=== PATIENT | male | born 1965 ===

== ENCOUNTER 2017-08-25 07:39 | Emergency (ER) | payer OTHER ==
[2017-08-25 07:44] VITALS: TEMP 97.9; BMI 25.0
[2017-08-25 08:03] VITALS: RESP 18
--- NOTE | 2017-08-25 08:36 | ED PDOC ---
Syncope/Near Syncope/Dizziness Time Seen by Provider: 08/25/17 08:05 Chief Complaint (Nursing): Dizziness/Lightheaded Chief Complaint (Provider): Dizziness/Lightheaded History Per: Patient History/Exam Limitations: no limitations Onset/Duration Of Symptoms: Sudden Onset (upon waking up) Current Symptoms Are (Timing): Better Additional Complaint(s): Gabino is a 52 y/o male who presents to the ED complaining of dizziness with a slight headache, since waking up this morning. He states the dizziness was gradually worsening since onset, but has subsided since lying down. He drank coffee this morning but has not had breakfast yet. Patient reports he is borderline hypertensive, and takes daily medication for his cholesterol. He describes having occasional dizziness in the past, but has never been diagnosed with vertigo. Denies any associated nausea, vomiting, weakness, numbness, or tingling. 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 He reports his annual follow up with his surgeon is this month. Patient states other past medical history includes a knee surgery, and herniated discs at L1, 2, and 4, treated with physical therapy. PMD: Dr. Jayjay Myers Past Medical History Reviewed: Historical Data, Nursing Documentation, Vital Signs Vital Signs: Last Vital Signs Temp 97.9 F 08/25/17 08:00 Pulse 81 08/25/17 08:00 Resp 18 08/25/17 08:00 BP 166/101 H 08/25/17 08:00 Pulse Ox 95 08/25/17 08:00 - Medical History PMH: Arthritis (KNEES), Asthma, HTN, Hypercholesterolemia Denies: Colonic Polyps - Surgical History Surgical History: Back Surgery, Tonsillectomy Other surgeries: Knee surgery. AVM surgery - 2014 - Family History Family History: States: Unknown Family Hx - Home Medications Home Medications: Ambulatory Orders Medication Instructions Recorded Lisinopril 10 mg PO DAILY 05/14/16 Simvastatin 40 mg PO DAILY 05/14/16 Albuterol HFA [Ventolin HFA 90 1 puff IH [id number] #60 puff 01/01/17 mcg/actuation (8 g)] Azithromycin [Zithromax] 250 mg PO DAILY #4 tab 01/01/17 - Allergies Allergies/Adverse Reactions: Allergies Allergy/AdvReac Type Severity Reaction Status Date / Time No Known Allergies Allergy Verified 09/09/16 09:33 Review of Systems ROS Statement: Except As Marked, All Systems Reviewed And Found Negative Gastrointestinal: Negative for: Nausea, Vomiting Neurological: Positive for: Headache, Dizziness. Negative for: Weakness, Numbness Physical Exam - Reviewed Nursing Documentation Reviewed: Yes Vital Signs Reviewed: Yes - Physical Exam Appears: Positive for: Well, Non-toxic, No Acute Distress Head Exam: Positive for: ATRAUMATIC, NORMAL INSPECTION, NORMOCEPHALIC Skin: Positive for: Normal Color, Warm, Dry Eye Exam: Positive for: EOMI, Normal appearance, PERRL ENT: Positive for: Normal ENT Inspection Neck: Positive for: Normal, Supple Cardiovascular/Chest: Positive for: Regular Rate, Rhythm. Negative for: Murmur Respiratory: Positive for: Normal Breath Sounds. Negative for: Accessory Muscle Use, Respiratory Distress Pulses-Radial (L): 2+ Pulses-Radial (R): 2+ Gastrointestinal/Abdominal: Positive for: Normal Exam, Soft. Negative for: Tenderness Back: Positive for: Normal Inspection. Negative for: L CVA Tenderness, R CVA Tenderness, Vertebral Tenderness Extremity: Positive for: Normal ROM. 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 Negative for: Motor/Sensory Deficits , Aphasia, Facial Droop - Laboratory Results Result Diagrams: 08/25/17 08:42 08/25/17 08:42 - ECG ECG: Positive for: Interpreted By Me, Viewed By Ks ECG Rhythm: Positive for: Sinus Rhythm. Negative for: ST/T Changes Rate: 75 O2 Sat by Pulse Oximetry: 95 (RA) Pulse Ox Interpretation: Normal Medical Decision Making Medical Decision Making: Time: 8:25 Initial Plan: --CMP --CBC w/ differential --Pending CT Head w/o contrast Time: 9:53 CT HEAD W/O CONTRAST: FINDINGS: HEMORRHAGE: No intracranial hemorrhage. BRAIN: There is redemonstration of a known large approximately 3.4 x 1.7 cm AVM in the left parasagittal frontal lobe extending across the midline into the genu of the corpus callosum. There is no mass, mass effect or abnormal extra-axial fluid collection. VENTRICLES: The ventricles are normal in size, shape and configuration. CALVARIUM: The skull base and calvarium are normal. PARANASAL SINUSES: Predominantly clear. MASTOID AIR CELLS: Predominantly clear. OTHER FINDINGS: None. IMPRESSION: No acute intracranial abnormality. Large left frontal parasagittal AV malformation extending across the midline into the genu of the corpus callosum. --Orthostatics were normal --Labs reviewed and are normal Time: 10:55 --Patient reports improvement in symptoms and is medically stable for discharge. --Advised patient to follow up with neurosurgeon in 1-2 days. pt will make appt to see specialist during that period. stressed the importance of doing so. --There is agreement to discharge plan. Return immediately if symptoms persist or worsen. Clinical Impression: Dizziness Scribe Attestation: Documented by Rosario Sommers, acting as a scribe for Yunior Villarreal MD Provider Scribe Attestation: All medical record entries made by the Scribe were at my direction and personally dictated by me. I have reviewed the chart and agree that the record accurately reflects my personal performance of the history, physical exam, medical decision making, and the department course for this patient. I have also personally directed, reviewed, and agree with the discharge instructions and disposition. Disposition - Clinical Impression Clinical Impression: Dizziness - Patient ED Disposition Is Patient to be Admitted: No Counseled Patient/Family Regarding: Studies Performed, Diagnosis, Need For Followup - Disposition Disposition: Routine/Home Disposition Time: 10:55 Condition: IMPROVED Additional Instructions: follow up with your neurosurgeon tomorrow for further evaluation. return to the ED With any worsening or concerning symptoms Instructions: Dizziness (ED) Forms: [employer] ([place])
[2017-08-25 08:55] LABS: ALB/GLOB RATIO 1.4 (1.0-2.1); ALKALINE PHOSPHATASE 68 U/L (38-126); ALT/SGPT 58 U/L (21-72); AST/SGOT 45 U/L (17-59); BILIRUBIN,TOTAL 0.9 mg/dl (0.2-1.3); BLOOD UREA NITROGEN 12 mg/dl (9-20); CALCIUM 9.8 mg/dL (8.4-10.2); CARBON DIOXIDE 26 mmol/L (22-30); CHLORIDE 105 mmol/L (98-107); GFR AFRICAN-AMERICAN > 60; GLUCOSE,RANDOM 106 mg/dL (75-110); POTASSIUM 4.3 MMOL/L (3.6-5.0); SODIUM 144 mmol/l (132-148); TOTAL PROTEIN 7.6 G/DL (6.3-8.2)
[2017-08-25 09:07] LABS: BASO # 0.1 K/uL (0.0-0.2); BASO % 1.5 % (0.0-2.0); EOS # 0.1 K/uL (0.0-0.7); EOS % 0.8 % (0.0-4.0); HEMATOCRIT 47.1 % (35.0-51.0); LYMPH # 1.8 K/uL (1.0-4.3); LYMPH % 23.6 % (20.0-40.0); MEAN CELL VOLUME 92.6 fl (80.0-94.0); MEAN CORPUSCULAR HEMOGLOBIN 31.2 pg (27.0-31.0); MEAN CORPUSCULAR HGB CONC 33.7 g/dL (33.0-37.0); MEAN PLATELET VOLUME 8.2 fl (7.2-11.7); MONO # 0.8 K/uL (0.0-0.8); MONO % 10.8 % (0.0-10.0); NEUT % 63.3 % (50.0-75.0); RED CELL DISTRIBUTION WIDTH 13.3 % (11.5-14.5); WHITE BLOOD COUNT 7.8 K/uL (4.8-10.8)
--- NOTE | 2017-08-25 09:55 | CT ---
PROCEDURE: CT HEAD WITHOUT CONTRAST. HISTORY: Dizziness COMPARISON: 11/07/2015. TECHNIQUE: Axial computed tomography images were obtained through the head/brain without intravenous contrast. Radiation dose: Total exam DLP = 862.14 mGy-cm. This CT exam was performed using one or more of the following dose reduction techniques: Automated exposure control, adjustment of the mA and/or kV according to patient size, and/or use of iterative reconstruction technique. FINDINGS: HEMORRHAGE: No intracranial hemorrhage. BRAIN: There is redemonstration of a known large approximately 3.4 x 1.7 cm AVM in the left parasagittal frontal lobe extending across the midline into the genu of the corpus callosum. There is no mass, mass effect or abnormal extra-axial fluid collection. VENTRICLES: The ventricles are normal in size, shape and configuration. CALVARIUM: The skull base and calvarium are normal. PARANASAL SINUSES: Predominantly clear. MASTOID AIR CELLS: Predominantly clear. OTHER FINDINGS: None. IMPRESSION: No acute intracranial abnormality. Large left frontal parasagittal AV malformation extending across the midline into the genu of the corpus callosum.
[2017-08-25 11:44] VITALS: BP 156/100
[2017-08-25 15:06] VITALS: PULSE 75; O2SAT 95
== END 2017-08-25 11:45 | disposition home or self-care (01) ==
LOC: H.ER 07:39
DX: R42 Dizziness and giddiness (principal); I10 Essential (primary) hypertension; F17.210 Nicotine dependence, cigarettes, uncomplicated

== ENCOUNTER 2017-10-24 09:05 | Day surgery (SDC) | payer BC ==
[2017-10-24] MEDS ORDERED: Lactated Ringer's 1,000 ML IV ONE (10:10)
[2017-10-24] MEDS: Lidocaine 1% Inj (20ml) ONE ×4 (10:37→11:18)
[2017-10-24] MEDS: Iohexol 300 10 ML ONE ×5 (10:37→11:19)
[2017-10-24] MEDS: Bupivacaine HCl 0.25% PF (10 ml) Inj ONE ×5 (10:37→11:22)
[2017-10-24] MEDS: methylPREDNISolone Depo 80 mg/ml Inj ONE ×4 (10:38→11:22)
[2017-10-24] MEDS ORDERED: Midazolam 2 MG/2 ML VIAL ONE (11:03)
--- NOTE | 2017-10-24 12:14 | RAD ---
PROCEDURE: Fluoroscopy up to 1 hr. HISTORY: PAIN MANAGEMENT COMPARISON: None TECHNIQUE: Standard protocol for this study/examination. FINDINGS: Total fluoroscopic time (continuous mode) utilized during the procedure: 46.7 seconds. Total exam DLP: (mGy): 8.29 IMPRESSION: Less than 1 hr fluoroscopic time utilized during performance of the procedure.
[2017-10-24 12:32] VITALS: RESP 18
[2017-10-24 12:49] VITALS: BP 125/83; PULSE 61; TEMP 97.6; O2SAT 98
--- NOTE | 2017-10-24 14:43 | OP ---
PROCEDURE DATE: 10/24/2017 PREOPERATIVE DIAGNOSES: Lumbar radiculopathy and cervical trigger point. POSTOPERATIVE DIAGNOSIS: Lumbar radiculopathy and cervical trigger point. PROCEDURES: Left L4-L5, L5-S1 transforaminal epidural steroid injection and left trapezius muscle injections x2. ANESTHESIA ADMINISTERED BY: Dr. Grayson. SURGEON: Booker Rubio MD TYPE OF ANESTHESIA: Monitored anesthesia care. COMPLICATIONS: None. SPECIMEN: None. DESCRIPTION OF PROCEDURE: After we had discussion of the procedure with the patient including its risks, benefits, alternative, outcome data, possibility of no effect or increased pain, the patient consented to the procedure. He denies any recent infections, bleeding tendencies or being on anticoagulants; the decision was then made to proceed to the OR. The patient was placed on a fluoroscopy table in a prone position with 2 pillows underneath his abdomen. The back was prepped and draped in the usual sterile fashion and sterile technique was adhered to during the entire procedure. The L4 and L5 vertebral levels were first identified in the anterior and posterior view. Angulation towards the left at approximately 25 degrees was used to maximize the visualization of the left L4 and L5 pedicles. The skin overlying the 6 o'clock position of both pedicles was infiltrated with 1% lidocaine using a 25-gauge needle. Subsequently, a 22-gauge 3.5 inch spinal needle was incrementally advanced under fluoroscopic guidance until the tip of the needle walked into the intervertebral foramen at both levels. After satisfactory positioning of both needles, approximately 0.5 mL of Isovue contrast was injected showing appropriate spread. At this point, approximately 3 mL of 0.25% Marcaine and Depo Medrol mixture was injected. The needle was then removed and the patient's back was cleaned and dried; bandage was applied. Then, the left trapezius muscles were marked and cleaned. The tender points were then injected using a 25-gauge needle with approximately 10 mL of 0.25% Marcaine at 2 different spots. The patient tolerated the procedure well and was then transferred to the recovery area. The patient displayed no signs of CSF dysfunction nor any neurological deficits during the stay in recovery. He will be discharged with the instructions to follow up in office in approximately 2-4 weeks. En-Rogelio Rubio MD
== END 2017-10-24 13:15 | disposition home or self-care (01) ==
LOC: H.OPSURG 09:05
PROVIDERS: ATTEND Anesthesiology
DX: M54.16 Radiculopathy, lumbar region (principal)
CPT/HCPCS: 64483; 64484; J1040; J2250; J3010; J7120; Q9967

== ENCOUNTER 2018-09-04 06:24 | Emergency (ER) | payer OTHER ==
[2018-09-04 06:24] VITALS: BMI 25.0
[2018-09-04] MEDS: Labetalol 5 mg/ml Inj 20ML IVP STA ×2 (07:15→07:35)
[2018-09-04] MEDS ORDERED: Sodium Chloride 0.9% 1,000 ML IV SCH (07:15)
--- NOTE | 2018-09-04 07:15 | ED PDOC ---
HPI:STROKE - Time Time: 07:13 - Historian Historian: Patient - Chief Complaint Chief Complaint: other (Headache while riding to work on bike this AM approx 6:30 AM. No focal weakness or parasthesias.) - Onset Date: 09/04/18 Time: 06:30 - Timing Timing: Currently Symptomatic - Context Context: Bicycle - Severity of pain Maximum severity:: Moderate Pain Scale:: 4 Severity Current: Moderate Pain Scale:: 4 - Quality of Pain Quality of Pain:: Aching - Associated Symptoms Associated symptoms:: Headache - Exacerbated by Exacerbated by:: Nothing - Relieved by Relieved by:: Nothing - TPA Positive for Contraindication: Yes Reason tPA is not being Administered: H/o cerebral aneurysm NIHSS Stroke Scale - How Severe is the Stroke Level of Consciousness: 1=Drowsy LOC to Questions: 0=Both comments correct LOC to commands: 0=Obeys both correctly Best Gaze: 0=Normal Visual: 0=No visual loss Facial: 0=Normal Motor Arm - Left: 0=No drift Motor Arm - Right: 0=No drift Motor Leg - Left: 0=No drift Motor Leg - Right: 0=No drift Limb Ataxia: 0=Absent Sensory: 0=Normal Best Language: 0=No aphasia Dysarthia: 0=Normal articulation Extinction & Inattention (Neglect): 0=Normal, no object Score: 1 rTPA Inclusion/Exclusion - Refusal of Treatment Patient Refused Treatment: No - Inclusion Criteria for Altepase Patient is 18 years or Older: Yes The Clinical Diagnosis of Ischemic Stroke That is Causing a Potentially Di sabling Neurological Deficit: No Time of Onset is Well Established to be Less Than 270 Minute Before Treatment Would Begin: Yes Risk/Benefit Discussed With Patient/Family Member Present: No Past Medical History Vital Signs: Last Vital Signs Temp 98.2 F 09/04/18 06:34 Pulse 85 09/04/18 06:54 Resp 28 H 09/04/18 06:54 BP 169/110 H 09/04/18 06:54 Pulse Ox 96 09/04/18 06:54 - Medical History PMH: Arthritis (KNEES), Asthma, HTN, Hypercholesterolemia Denies: Colonic Polyps Other PMH: Cerebral aneurysm - Surgical History Surgical History: Back Surgery, Tonsillectomy - Family History Family History: States: Unknown Family Hx - Home Medications Home Medications: Ambulatory Orders Medication Instructions Recorded Lisinopril 10 mg PO DAILY 05/14/16 Simvastatin 40 mg PO DAILY 05/14/16 Albuterol HFA [Ventolin HFA 90 1 puff IH [id number] #60 puff 01/01/17 mcg/actuation (8 g)] - Allergies Allergies/Adverse Reactions: Allergies Allergy/AdvReac Type Severity Reaction Status Date / Time No Known Allergies Allergy Verified 09/04/18 06:34 Review of Systems ROS Statement: Except As Marked, All Systems Reviewed And Found Negative Neurological: Positive for: Headache Physical Exam - Reviewed Nursing Documentation Reviewed: Yes Vital Signs Reviewed: Yes - Physical Exam Appears: Positive for: Non-toxic, No Acute Distress Head Exam: Positive for: ATRAUMATIC, NORMAL INSPECTION, NORMOCEPHALIC Skin: Positive for: Normal Color, Warm, DRY Eye Exam: Positive for: EOMI, Normal appearance, PERRL ENT: Positive for: Normal ENT Inspection Neck: Positive for: Normal, Painless ROM Cardiovascular/Chest: Positive for: Regular Rate, Rhythm Respiratory: Positive for: CNT, Normal Breath Sounds Gastrointestinal/Abdominal: Positive for: Normal Exam, Soft Back: Positive for: Normal Inspection Extremity: Positive for: Normal ROM Neurologic/Psych: Positive for: Oriented. Negative for: Alert (Drowsy arousable), Motor/Sensory Deficits - Laboratory Results Result Diagrams: 09/04/18 07:25 09/04/18 07:25 - ECG O2 Sat by Pulse Oximetry: 96 (RA) Pulse Ox Interpretation: Normal - Progress Re-evaluation Time: 08:29 Condition: Re-examined (BP 156/111, will titrate Nicardipene drip. Keppra 1 gm IV given) - Critical Care Total Time (In Min): 60 Documented Critical Care: Time excludes all time spent performint seperately billable procedures Medical Decision Making Medical Decision Makin Discussed patient's CT findings with Dr. Holcomb, hospital neurologist who requested calling Dr. Baeza for interventional neurology. [phone] findings [address]. Baeza who requests transfer of patient for neuro intervention. [id number] Baeza for transfer to [facility]. Scribe Attestation: Documented by Lacie James, acting as a scribe for Vasu Tabares MD. Provider Scribe Attestation: All medical record entries made by the Scribe were at my direction and personally dictated by me. I have reviewed the chart and agree that the record accurately reflects my personal performance of the history, physical exam, medical decision making, and the department course for this patient. I have also personally directed, reviewed, and agree with the discharge instructions and dis position. Disposition - Clinical Impression Clinical Impression: Subarachnoid bleed - Patient ED Disposition Is Patient to be Admitted: No - Disposition Disposition: Other Institution Disposition Time: 08:30 Condition: GUARDED Forms: [employer] (Korean)
[2018-09-04] MEDS ORDERED: Nicardipine 20 MG/200 ML 20 MG/200 ML BAG IV ONE (07:51)
[2018-09-04 07:55] LABS: BASO % 0.3 % (0.0-2.0); EOS # 0.2 K/uL (0.0-0.7); EOS % 1.7 % (0.0-4.0); HEMOGLOBIN 16.8 g/dL (12.0-18.0); LYMPH # 2.7 K/uL (1.0-4.3); LYMPH % 29.4 % (20.0-40.0); MEAN CELL VOLUME 92.1 fl (80.0-94.0); MEAN CORPUSCULAR HEMOGLOBIN 31.6 pg (27.0-31.0); MEAN CORPUSCULAR HGB CONC 34.3 g/dL (33.0-37.0); MEAN PLATELET VOLUME 8.6 fl (7.2-11.7); MONO # 0.9 K/uL (0.0-0.8); MONO % 10.3 % (0.0-10.0); NEUT # 5.3 K/uL (1.8-7.0); NEUT % 58.3 % (50.0-75.0); RBC 5.32 Mil/uL (4.40-5.90); RED CELL DISTRIBUTION WIDTH 13.8 % (11.5-14.5)
[2018-09-04] MEDS ORDERED: levETIRAcetam 1,000 MG in Sodium Chloride 0.9% 100 ML IVPB ONE (07:57)
[2018-09-04 08:13] LABS: ALB/GLOB RATIO 1.2 (1.0-2.1); ALBUMIN 4.5 g/dL (3.5-5.0); ALT/SGPT 37 U/L (21-72); AST/SGOT 31 U/L (17-59); BLOOD UREA NITROGEN 15 mg/dl (9-20); CALCIUM 9.9 mg/dL (8.4-10.2); GFR NON-AFRICAN AMERICAN > 60; HDL CHOLESTEROL 53 MG/DL (30-70)
[2018-09-04 08:14] LABS: PROTHROMBIN TIME 10.8 Seconds (9.8-13.1)
[2018-09-04 08:17] LABS: PARTIAL THROMBOPLASTIN TIME 26.7 Seconds (25.6-37.1)
[2018-09-04 08:23] LABS: LDL CHOLESTEROL 166 mg/dL (0-129)
--- NOTE | 2018-09-04 08:34 | RAD ---
Date of service: 09/04/2018 HISTORY: Code Stroke COMPARISON: Portable chest 01/01/2017. FINDINGS: LUNGS: Inspiratory volume appears somewhat diminished however there is no definitive infiltrate identified bilaterally. There is some crowding of the bronchovascular markings bilaterally at the bases. PLEURA: No significant pleural effusion identified, no pneumothorax apparent. CARDIOVASCULAR: Normal. OSSEOUS STRUCTURES: No significant abnormalities. VISUALIZED UPPER ABDOMEN: Mild right hemidiaphragm elevation noted. OTHER FINDINGS: None. IMPRESSION: No acute airspace disease or pulmonary vascular congestion. Cardiac size stable. Crowding of the bronchovascular markings is identified in the bilateral bases somewhat. Right hemidiaphragm appears slightly elevated of indeterminate etiology.
--- NOTE | 2018-09-04 08:52 | CT ---
Date of service: 09/04/2018 PROCEDURE: CT HEAD WITHOUT CONTRAST. HISTORY: Headache COMPARISON: Noncontrast head CT 08/25/2017. TECHNIQUE: Axial computed tomography images were obtained through the head/brain without intravenous contrast. Radiation dose: Total exam DLP = 894.06 mGy-cm. This CT exam was performed using one or more of the following dose reduction techniques: Automated exposure control, adjustment of the mA and/or kV according to patient size, and/or use of iterative reconstruction technique. FINDINGS: HEMORRHAGE: There is now anterior left intraparenchymal hemorrhage as well as local subarachnoid hemorrhage at the medial bilateral frontal lobes anteriorly extending up to the vertex and also to the anterior cranial fossa through the interhemispheric fissure primarily. Additional hemorrhage fills the suprasellar cistern and extends into all 4 ventricles, foramina of Luschka and measured on the as well as the incisura. There is a minimal rightward shift of 2 mm in addition to some crowding of the cisterns surrounding the brainstem which is likely a function of generalized mass effect resulting slight is a uncal herniation. There is no tonsillar herniation at this time however CSF immediately cephalad and at the foramen magnum appears to be diminishing, partially related to subarachnoid hemorrhage. There is also hemorrhage through the body of the corpus callosum anteriorly, extending into left lateral ventricle with the 3rd ventricle completely filled with hemorrhage. Local edema sounds surrounds left frontal intraparenchymal hemorrhage. BRAIN: Good corticomedullary differentiation remains throughout the brain including the posterior fossa contents. Please see discussion above. VENTRICLES: As above. CALVARIUM: Unremarkable. PARANASAL SINUSES: Unremarkable as visualized. No significant inflammatory changes. MASTOID AIR CELLS: Unremarkable as visualized. No inflammatory changes. OTHER FINDINGS: None. IMPRESSION: Acute/subacute intraparenchymal and subarachnoid hemorrhage identified related to left frontal/pericallosal arteriovascular malformation. Hemorrhage extends into the ventricular system diffusely but mainly the left lateral ventricle and 3rd ventricle with hydrocephalus developing. Minimal rightward shift of 2 mm. Generalized mass effect is causing subtle encroachment of the basilar cisterns at this time. Limited local edema seen the genu of the corpus callosum and left frontal lobe related to intraparenchymal hemorrhage. [facility]04[facility]2018 7:42 a.m.. Findings discussed with Dr. Tabares by telephone with written down and read back verification 09/04/2018 8:20 a.m.. At the time of discussion of the case with [facility] Shukla head confirmed ER is receipt of preliminary report by Dr. Mora from [facility] and the Neurosurgery home care consultant had already been informed and reviewed this CT exam.
[2018-09-04 09:01] VITALS: TEMP 98.1
[2018-09-04] MEDS ORDERED: Nicardipine 20 MG/200 ML 20 MG/200 ML BAG ONE (09:39)
[2018-09-04 09:53] VITALS: PULSE 93; RESP 27; O2SAT 97
[2018-09-04 09:55] VITALS: BP 142/88
--- NOTE | 2018-09-04 10:18 | CARD ---
APPROVED REPORT Date of service: 09/04/2018 EKG Measurement Heart [id number] <Conclusion> Normal sinus rhythm Minimal voltage criteria for LVH, may be normal variant Borderline ECG
== END 2018-09-04 09:45 | disposition short-term general hospital (02) ==
LOC: H.ER 06:24
DX: I60.9 Nontraumatic subarachnoid hemorrhage, unspecified (principal)
CPT/HCPCS: 70450; 71045; 80053; 80061; 82948; 83036; 84484; 85025; 85610; 85730; 86850; 86900; 93005; 96374; 96375; 99285; J1953; J2405; J7030

== ENCOUNTER 2018-09-20 18:53 | Observation (INO) | payer BC, OTHER ==
[2018-09-20 18:53] VITALS: BMI 25.0
[2018-09-20] MEDS ORDERED: Sodium Chloride 0.9% 1,000 ML IV STA (19:15)
--- NOTE | 2018-09-20 19:34 | ED PDOC ---
Syncope/Near Syncope/Dizziness Time Seen by Provider: 09/20/18 19:02 Chief Complaint (Nursing): Syncope Chief Complaint (Provider): Syncope History Per: Patient History/Exam Limitations: no limitations Onset/Duration Of Symptoms: Hrs (x1) Associated Symptoms Preceding Syncopal Episode: Lightheadedness Fall Associated With With Symptoms: Yes Additional Complaint(s): Gabino Lenz is a 53 year old male, with a past medical history of HTN, hype rlipidemia, and AVM, who was brought to the emergency department by EMS for a syncopal episode at 18:50 today. Patient reports he felt dizzy and lightheaded before the syncopal episode. He fell forward and his report she found him on the floor with positive LOC but unsure how long. On September 04 patient was found to have a subdural hematoma, he was sent to [facility] where he was stabilized and was discharged yesterday. Patient reports he wasn't on medications for a long period of time but restarted taking his hypertensive medications. He is currently complaining of a mild neck pain and headache but denies any fever, chills, numbness or tingling, weakness, chest pain, shortness of breath, nausea, vomit, diarrhea or abdominal pain. No further medical complaints. PMD: Dr. Jayjay Brito NIHSS Stroke Scale - Date/Time Evaluation Performed Date Performed: 09/20/18 When Was NIHSS Performed: 24 hours post onset S/S - How Severe is the Stroke Level of Consciousness: 0=Alert LOC to Questions: 0=Both comments correct LOC to commands: 0=Obeys both correctly Best Gaze: 0=Normal Visual: 0=No visual loss Facial: 0=Normal Motor Arm - Left: 0=No drift Motor Arm - Right: 0=No drift Motor Leg - Left: 0=No drift Motor Leg - Right: 0=No drift Limb Ataxia: 0=Absent Sensory: 0=Normal Best Language: 0=No aphasia Dysarthia: 0=Normal articulation Extinction & Inattention (Neglect): 0=Normal, no object Score: 0 Past Medical History Reviewed: Historical Data, Nursing Documentation, Vital Signs Vital Signs: Last Vital Signs Temp 97.4 F L 09/20/18 18:58 Pulse 81 09/20/18 19:10 Resp 17 09/20/18 19:10 BP 96/63 L 09/20/18 19:10 Pulse Ox 100 09/20/18 19:10 - Medical History PMH: Arthritis (KNEES), Asthma, HTN, Hypercholesterolemia Denies: Colonic Polyps Other PMH: AVM - Surgical History Surgical History: Back Surgery, Tonsillectomy - Family History Family History: States: Unknown Family Hx - Home Medications Home Medications: Ambulatory Orders Medication Instructions Recorded Lisinopril 10 mg PO DAILY 05/14/16 Simvastatin 40 mg PO DAILY 05/14/16 Albuterol HFA [Ventolin HFA 90 1 puff IH [id number] #60 puff 01/01/17 mcg/actuation (8 g)] - Allergies Allergies/Adverse Reactions: Allergies Allergy/AdvReac Type Severity Reaction Status Date / Time No Known Allergies Allergy Verified 09/20/18 18:58 Review of Systems ROS Statement: Except As Marked, All Systems Reviewed And Found Negative Constitutional: Negative for: Fever, Chills Cardiovascular: Negative for: Chest Pain Respiratory: Negative for: Shortness of Breath Gastrointestinal: Negative for: Nausea, Vomiting, Abdominal Pain, Diarrhea Musculoskeletal: Positive for: Neck Pain (mild) Neurological: Positive for: Headache (mild), Dizziness (lightheaded), Other (syncope). Negative for: Weakness, Numbness (tingling) Physical Exam - Reviewed Nursing Documentation Reviewed: Yes Vital Signs Reviewed: Yes - Physical Exam Appears: Positive for: No Acute Distress Head Exam: Positive for: ATRAUMATIC, NORMAL INSPECTION, NORMOCEPHALIC Skin: Positive for: Normal Color, Warm, Dry Eye Exam: Positive for: Normal appearance, EOMI, PERRL ENT: Positive for: Other (Front left tooth mildly loose. No bleeding or septal hematoma) Neck: Positive for: Normal, Painless ROM, Supple Cardiovascular/Chest: Positive for: Regular Rate, Rhythm. Negative for: Murmur Respiratory: Positive for: Normal Breath Sounds. Negative for: Respiratory Distress Gastrointestinal/Abdominal: Positive for: Normal Exam, Soft. Negative for: Tenderness Back: Positive for: Normal Inspection. Negative for: L CVA Tenderness, R CVA Tenderness, Vertebral Tenderness Extremity: Positive for: Normal ROM (upper and lower extremities). 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 Negative for: Motor/Sensory Deficits, Aphasia, Facial Droop - Laboratory Results Result Diagrams: 09/20/18 19:55 09/20/18 19:55 Interpretation Of Abn Labs: no acute - ECG ECG: Positive for: Interpreted By Me, Viewed By Me ECG Rhythm: Positive for: Normal QRS, Normal ST Segment, Sinus Rhythm O2 Sat by Pulse Oximetry: 100 (RA) Pulse Ox Interpretation: Normal - CT Scan/US ct Other Rad Studies (CT/US): Read By Radiologist Other Rad Interpretation: no acute bleed - Progress ED Course And Treament: 2353: Spoke with Dr. Ro. Will admit for observation, considering pt. history and presentation. Stable. AAOx3. Pain free. Medical Decision Making Medical Decision Making: Time: 19:02 Initial Impression: Syncope Initial Plan: --Cervical Spine w/o contrast [CT] --Head w/o contrast [CT] --EKG --CMP --Troponin I --CBC w/ differential --PTT --PT --Sodium Chloride 1,000 ml IV 1,000 mls/hr --Reevaluation Scribe Attestation: Documented by Avtar Carrion, acting as a scribe for Huan Maguire MD. Provider Scribe Attestation: All medical record entries made by the Scribe were at my direction and personally dictated by me. I have reviewed the chart and agree that the record accurately reflects my personal performance of the history, physical exam, medical decision making, and the department course for this patient. I have also personally directed, reviewed, and agree with the discharge instructions and disposition. Disposition - Clinical Impression Clinical Impression: Syncope, Dizziness - Patient ED Disposition Is Patient to be Admitted: Yes Counseled Patient/Family Regarding: Studies Performed, Diagnosis - Disposition Disposition Time: 23:55 Condition: FAIR - Pt Status Changed To: Hospital Disposition Of: Observation - POA Present On Arrival: Falls Or Trauma
[2018-09-20 20:12] LABS: BASO # 0.1 K/uL (0.0-0.2); BASO % 0.7 % (0.0-2.0); EOS # 0.2 K/uL (0.0-0.7); EOS % 1.7 % (0.0-4.0); HEMOGLOBIN 14.7 g/dL (12.0-18.0); LYMPH # 1.4 K/uL (1.0-4.3); LYMPH % 13.7 % (20.0-40.0); MEAN CELL VOLUME 93.3 fl (80.0-94.0); MEAN CORPUSCULAR HEMOGLOBIN 32.5 pg (27.0-31.0); MEAN CORPUSCULAR HGB CONC 34.9 g/dL (33.0-37.0); MEAN PLATELET VOLUME 7.4 fl (7.2-11.7); MONO % 9.9 % (0.0-10.0); NEUT # 7.7 K/uL (1.8-7.0); RBC 4.52 Mil/uL (4.40-5.90); RED CELL DISTRIBUTION WIDTH 13.3 % (11.5-14.5); WHITE BLOOD COUNT 10.4 K/uL (4.8-10.8)
[2018-09-20 20:17] LABS: INR 1.1; PROTHROMBIN TIME 12.3 Seconds (9.8-13.1)
[2018-09-20 20:20] LABS: PARTIAL THROMBOPLASTIN TIME 31.3 Seconds (25.6-37.1)
[2018-09-20 20:31] LABS: ALB/GLOB RATIO 1.1 (1.0-2.1); ALBUMIN 3.9 g/dL (3.5-5.0); ALT/SGPT 233 U/L (21-72); AST/SGOT 90 U/L (17-59); BLOOD UREA NITROGEN 15 mg/dl (9-20); CALCIUM 9.6 mg/dL (8.4-10.2); GFR NON-AFRICAN AMERICAN > 60
--- NOTE | 2018-09-21 00:47 | CP.PCM.HP ---
Addendum entered and electronically signed by Froylan Dior MD 09/21/18 12:35: Patient seen. All chart and clinical data reviewed .Case discussed with resident. Agree with assessment and plan. Follow up MRI report Addendum entered and electronically signed by Max Baxter DPM 09/21/18 10:21: S: 53 y/o male with PMHx of HTN, AVM and recent subdural hematoma with recent discharge from [facility] inpt unit, admitted due to syncopal event. Patient was seen and evaluated at bedside. Patient resting comfortably and denies any acute overnight events. Patient denies any metal in body as patient will be going for a Brain MRI. O: Head Exam: Normocephalic, atraumatic Eye Exam: EOMI, PERRL ENT Exam: Mucous Membranes Moist Neck exam: normal inspection Respiratory Exam: Clear to Auscultation Bilateral, NORMAL BREATHING PATTERN. absent: Wheezes Cardiovascular Exam: REGULAR RHYTHM, +S1, +S2 GI & Abdominal Exam: Normal Bowel Sounds, Soft. absent: Tenderness Extremities exam: Positive for: normal inspection. Negative for: calf tenderness, pedal edema Back exam: NORMAL INSPECTION. absent: paraspinal tenderness, tenderness, vertebral tenderness Neurological exam: Alert, Awake, Oriented X 3 Skin Exam: Dry, Intact, Normal Color, Warm A: 53 y/o male with PMHx of HTN, AVM and recent subdural hematoma with recent discharge from [facility] inpt unit, admitted due to syncopal event. Syncopal event may due to medication induced hypotension (BP on arrival to ED 96/63 mm Hg). Plan: 1) Syncopal Episode - Admitted to telemetry unit - Continue IV NS @ 125 ml/hr - hold antihypertensive medications and monitor BP - Orthostatic BP stable - Fall precaution protocol - F/u Head CT- Pending Final Read - F/u Brain MRI 2) History of hypertension - BP meds held at this time 3) Elevated transaminase - ALT 233, AST 90 - F/u Repeat CMP- pending 4) DVT prophylaxis - SCD's at this time Addendum entered and electronically signed by Christy Alvarez MD 09/21/18 02:26: addendum to neuro exam: 5/5 strength against resistance in all 4 extremities, able to move all 4 extremities spontaneously, able to reposition self in bed without difficulty no dysarthria pupils equal and reactive, no gaze preference Original Note: <Christy Alvarez - Last Filed: 09/21/18 01:33> History of Present Illness - History of Present Illness History of Present Illness: 53 year old male with medical history HTN, hyperlipidemia, and AVM (diagnosed 2yrs ago, treated with gamma knife surgery) and recent subdural hematoma (Sep 04, 2018) admitted due to syncopal episode earlier today. Pt accompanied by his who was providing most of the history as pt stated he was tired. Pt was recently admitted at [facility] for subdural hematoma, and was discharged 09/19 in evening; his picked up his medications and gave him his BP medications on 09/20 afternoon. Pt's reports he was walking in the kitchen and she heard a thud, which was him falling to the ground; he lost consciousness, but she is unsure how long for. After she got him up, the event recurred, and this time he was out for several seconds. He was not observed to have any jerking movements, loss of bowel or bladder function, foaming at mouth, or tongue biting. On ROS, pt denies fevers, chills, numbness or tingling, chest pain, shortness of breath, nausea, vomitting, diarrhea or abdominal pain. PMD: Dr. Jayjay Brito On arrival to ED, BP was 99/63, HR 80, RR 18, T 97.4, O2 sat 100 on RA. In ED, head CT showed: 1. Residual hemorrhage within anterior horn of left lateral ventricle as well as bifrontal lobes. 2. Marked improvement since prior study with resolution of most of the intraventricular, subarachnoid, and intraparenchymal hemorrhage. 3. Resolution of most of the vasogenic edema with perhaps minimal residual left frontal edema remaining 4. No evidence of rebleed. EKG: NSR @ 81 bpm Medications: Labetalol 300 mg BID, Lisinopril 40 mg daily, Nifedipine ER 30 mg daily, Tamsulosin 0.4 mg daily Social hx: 1 ppd smoker until subdural hematoma, now has nicotine patches; drinks 2-3 beers 2-3x a week Allergies: NKDA Present on Admission - Present on Admission Any Indicators Present on Admission: No Review of Systems - Constitutional Constitutional: absent: Fever - EENT Eyes: absent: Blurred Vision, Change in Vision - Cardiovascular Cardiovascular: Lightheadedness. absent: Chest Pain, Diaphoresis, Dyspnea - Respiratory Respiratory: absent: Cough, Dyspnea, Wheezing - Gastrointestinal Gastrointestinal: absent: Abdominal Pain, Fecal Incontinence, Nausea, Vomiting - Genitourinary Genitourinary: absent: Difficulty Urinating, Urinary Incontinence - Musculoskeletal Musculoskeletal: As Per HPI - Neurological Neurological: absent: Numbness, Paresthesias, Tingling Past Patient History - Past Medical History & Family History Past Medical History?: Yes - Past Social History Smoking Status: Former Smoker Alcohol: < 2 Drinks/Day - CARDIAC Hx Hypercholesterolemia: Yes Hx Hypertension: Yes - PULMONARY Hx Asthma: Yes - NEUROLOGICAL Hx Dizziness: Yes Hx Syncope: Yes Other/Comment: H/O LEFT FRONTAL LOBE AVM. Hx Subarachnoid bleed - MUSCULOSKELETAL/RHEUMATOLOGICAL Hx Arthritis: Yes (KNEES) - GASTROINTESTINAL Hx Gastrointestinal Disorders: Yes Other/Comment: Hx rectal bleed. Hx perianal venous thrombosis - GENITOURINARY/GYNECOLOGICAL Hx Genitourinary Disorders: Yes Other/Comment: Hx urinary retention - PSYCHIATRIC Hx Substance Use: No - SURGICAL HISTORY Hx Tonsillectomy: Yes - ANESTHESIA Hx Anesthesia: Yes Hx Anesthesia Reactions: No Hx Malignant Hyperthermia: No Meds Allergies/Adverse Reactions: Allergies Allergy/AdvReac Type Severity Reaction Status Date / Time No Known Allergies Allergy Verified 09/20/18 18:58 Physical Exam - Constitutional Appears: No Acute Distress, Other (appears tired/sleepy) - Head Exam Head Exam: NORMOCEPHALIC - Eye Exam Eye Exam: EOMI, PERRL - ENT Exam ENT Exam: Mucous Membranes Moist - Neck Exam Neck exam: Positive for: Normal Inspection - Respiratory Exam Respiratory Exam: Clear to Auscultation Bilateral, NORMAL BREATHING PATTERN. absent: Wheezes - Cardiovascular Exam Cardiovascular Exam: REGULAR RHYTHM, +S1, +S2 - GI/Abdominal Exam GI & Abdominal Exam: Normal Bowel Sounds, Soft. absent: Tenderness - Extremities Exam Extremities exam: Positive for: normal inspection. Negative for: calf tenderness, pedal edema - Back Exam Back exam: NORMAL INSPECTION. absent: paraspinal tenderness, tenderness, vertebral tenderness - Neurological Exam Neurological exam: Alert - Skin Skin Exam: Dry, Intact, Normal Color, Warm Results - Vital Signs Recent Vital Signs: Last Vital Signs Temp 97.4 F L 09/20/18 18:58 Pulse 78 09/20/18 19:40 Resp 18 09/20/18 19:40 BP 111/64 09/20/18 19:40 Pulse Ox 100 09/20/18 23:55 - Labs Result Diagrams: 09/20/18 19:55 09/20/18 19:55 Labs: Laboratory Results - last 24 hr 09/20/18 09/20/18 09/20/18 19:55 19:55 19:55 WBC 10.4 RBC 4.52 Hgb 14.7 D Hct 42.1 MCV 93.3 MCH 32.5 H MCHC 34.9 RDW 13.3 Plt Count 463 H D MPV 7.4 Neut % (Auto) 74.0 Lymph % (Auto) 13.7 L [place] % (Auto) 9.9 Eos % (Auto) 1.7 Baso % (Auto) 0.7 Neut # (Auto) 7.7 H Lymph # (Auto) 1.4 [place] # (Auto) 1.0 H Eos # (Auto) 0.2 Baso # (Auto) 0.1 PT 12.3 INR 1.1 APTT 31.3 Sodium 139 Potassium 4.5 Chloride 105 Carbon Dioxide 21 L Anion Gap 18 BUN 15 Creatinine 0.9 Est GFR ( Amer) > 60 Est GFR (Non-Af Amer) > 60 Random Glucose 128 H Calcium 9.6 Total Bilirubin 0.3 AST 90 H D ALT 233 H D Alkaline Phosphatase 187 H D Troponin I < 0.0120 Total Protein 7.5 Albumin 3.9 Globulin 3.6 Albumin/Globulin Ratio 1.1 Assessment & Plan - Assessment and Plan (Free Text) Assessment: 53 yo M with hx hypertension, AVM and recent subdural hematoma with recent dis charge from [facility] inpt unit, admitted due to syncopal event. Syncopal event may due to medication induced hypotension (BP on arrival to ED 96/63 mm Hg). Plan: # Syncope - admitted to telemetry unit; tele monitoring - IV NS @ 125 ml/hr - hold antihypertensive medications and monitor BP - check orthostatic BP - fall precaution protocol # History of hypertension - hold BP meds for now # Elevated transaminase - ALT 233, AST 90 - repeat CMP # DVT prophylaxis - SCD for now <Kofi Ro - Last Filed: 09/21/18 04:27> Results - Vital Signs Recent Vital Signs: Last Vital Signs Temp 98.9 F 09/21/18 03:37 Pulse 78 09/21/18 03:57 Resp 18 09/21/18 03:57 BP 133/81 09/21/18 03:37 Pulse Ox 100 09/21/18 03:37 - Labs Result Diagrams: 09/20/18 19:55 09/20/18 19:55 Labs: Laboratory Results - last 24 hr 09/20/18 09/20/18 09/20/18 19:55 19:55 19:55 WBC 10.4 RBC 4.52 Hgb 14.7 D Hct 42.1 MCV 93.3 MCH 32.5 H MCHC 34.9 RDW 13.3 Plt Count 463 H D MPV 7.4 Neut % (Auto) 74.0 Lymph % (Auto) 13.7 L [place] % (Auto) 9.9 Eos % (Auto) 1.7 Baso % (Auto) 0.7 Neut # (Auto) 7.7 H Lymph # (Auto) 1.4 [place] # (Auto) 1.0 H Eos # (Auto) 0.2 Baso # (Auto) 0.1 PT 12.3 INR 1.1 APTT 31.3 Sodium 139 Potassium 4.5 Chloride 105 Carbon Dioxide 21 L Anion Gap 18 BUN 15 Creatinine 0.9 Est GFR ( Amer) > 60 Est GFR (Non-Af Amer) > 60 Random Glucose 128 H Calcium 9.6 Total Bilirubin 0.3 AST 90 H D ALT 233 H D Alkaline Phosphatase 187 H D Troponin I < 0.0120 Total Protein 7.5 Albumin 3.9 Globulin 3.6 Albumin/Globulin Ratio 1.1 Attending/Attestation - Attestation I have personally seen and examined this patient.: Yes I have fully participated in the care of the patient.: Yes I have reviewed all pertinent clinical information: Yes Notes (Text): 09/21/18 04:18 I saw and examined this patient with Dr Alvarez. I agree with the assessment and plan outlined above which represent my direct input. This is a 53 years old male with hx of a Subaracnoid hemorrhage due to AVM bleed on September 04, 2018. He was discharged from [facility] on 09/19/18 and some time after taking his antihypertensive medications (Labetalol 300mg; Nifedipine and Lisinopril) he had a syncopy with fall with trauma to his mouth.. The family got him to his feet and tried a walker to assist him when he again fell an d loose consciousness. This patient will be considered having Orthostatic Hypotension and the antihypertensive medications will be on Hold and restart gradually with parameters. Continue IV Fluids and Cardiac monitoring. Kofi Ro MD
[2018-09-21] MEDS: Sodium Chloride 0.9% 1,000 ML IV SCH ×3 (02:18→20:00)
--- NOTE | 2018-09-21 10:58 | CARD ---
APPROVED REPORT Date of service: 09/20/2018 EKG Measurement Heart [id number] <Conclusion> Normal sinus rhythm Voltage criteria for left ventricular hypertrophy Abnormal ECG
[2018-09-21 11:05] LABS: ALBUMIN 3.8 g/dL (3.5-5.0); ALT/SGPT 197 U/L (21-72); AST/SGOT 66 U/L (17-59); BLOOD UREA NITROGEN 10 mg/dl (9-20); GFR NON-AFRICAN AMERICAN > 60
--- NOTE | 2018-09-21 11:36 | CT ---
Date of service: 09/20/2018 PROCEDURE: CT HEAD WITHOUT CONTRAST. HISTORY: headache COMPARISON: 09/04/2018. TECHNIQUE: Axial computed tomography images were obtained through the head/brain without intravenous contrast. Supplemental Coronal and Sagittal projections created and reviewed. Radiation dose: Total exam DLP = 815.16 mGy-cm. This CT exam was performed using one or more of the following dose reduction techniques: Automated exposure control, adjustment of the mA and/or kV according to patient size, and/or use of iterative reconstruction technique. FINDINGS: HEMORRHAGE: Substantial decrease in intraventricular and parenchymal hemorrhage identified previously. Residual blood within the anterior horn of the left lateral ventricle. Parenchymal contusion and subarachnoid hemorrhage apparent previously have resolved. BRAIN: Generalized edema identified previously has improved. No atrophy or chronic microvascular ischemic changes. VENTRICLES: Unremarkable. No hydrocephalus. CALVARIUM: Defect in the right frontal bone consistent with recent intervention to evacuate hemorrhage. PARANASAL SINUSES: Unremarkable as visualized. No significant inflammatory changes. MASTOID AIR CELLS: Unremarkable as visualized. No inflammatory changes. OTHER FINDINGS: None. IMPRESSION: Substantial decrease in intraventricular, parenchymal and subarachnoid hemorrhage. Postoperative findings related to prior epi hole right frontal region. Concordant results (preliminary interpretation) provided by [facility]. Procedure Completed: 22:14 Preliminary Report: Dictated and Authenticated: 23:04. Final Interpretation: 11:32. September 21, 2018
--- NOTE | 2018-09-21 11:40 | CT ---
Date of service: 09/20/2018 PROCEDURE: CT Cervical Spine without contrast HISTORY: Syncope common neck pain. COMPARISON: None available. TECHNIQUE: Axial computed tomography images were obtained of the cervical spine without the use of intravenous contrast. Coronal and sagittal reformatted images were created and reviewed. Radiation dose: Total exam DLP = 374.13 mGy-cm. This CT exam was performed using one or more of the following dose reduction techniques: Automated exposure control, adjustment of the mA and/or kV according to patient size, and/or use of iterative reconstruction technique. FINDINGS: VERTEBRAE: No fracture. Normal alignment. No destructive bony lesion. DISCS/SPINAL CANAL/NEURAL FORAMINA: No significant central canal or neural foraminal stenosis. Degenerative, hypertrophic changes noted C4-5, C5-6, C6-7. PARASPINAL SOFT TISSUES: Unremarkable. OTHER FINDINGS: None. IMPRESSION: No acute findings related to/accounting for the clinical presentation. Multilevel degenerative changes without evidence of spinal stenosis or significant foraminal narrowing. Concordant results (preliminary interpretation) provided by [facility]. Procedure Completed: 22:18. Preliminary Report: Dictated and Authenticated: 22:57. Final Interpretation: 11:36. September 21, 2018
--- NOTE | 2018-09-21 16:39 | MRI ---
Date of service: 09/21/2018 PROCEDURE: MRI BRAIN WITHOUT CONTRAST HISTORY: syncope COMPARISON: Noncontrast head CT 09/20/2018. TECHNIQUE: Multiplanar, multisequence MR images of the brain were obtained without intravenous contrast enhancement. FINDINGS: HEMORRHAGE: Extensive signal dephasing is identified at the body of the left lateral ventricle into the left frontal horn as well as at the corpus callosum. The left lateral ventricle signal changes correspond to subacute hemorrhage with similar component seen transverse at the body of the corpus callosum. Underlying AVM is likely in this distribution in this patient with reports prior clinical history of AVM. Limited layering hemorrhage is seen in the left lateral ventricle atrium dependent portion. DWI: No evidence of an acute or early subacute infarction. BRAIN PARENCHYMA: No significant mass effect is appreciated at this time there is no hydrocephalus either. Trace chronic microangiopathy is appreciated. Prior probable right frontal ventricular shunt catheter tract is appreciated with right frontal epi hole identified though somewhat less well characterized than in prior head CT noted above. Limited chronic microangiopathy is appreciated with the sulci and cisterns stable and unremarkable. Posterior fossa contents appear unremarkable. VENTRICLES: As above in hemorrhage section. ORBITS: Grossly unremarkable. PARANASAL SINUSES/MASTOIDS: Clear VASCULAR SYSTEM: Skull base flow voids intact. OTHER FINDINGS: None. IMPRESSION: 1. 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 Contrast CT or MRI can be utilized for added characterization. 2. Prior right frontal tract apparent though shunt likely removed at this time. Right frontal epi hole reiterated though less defined as in prior head CT 09/20/2018. 3. Minimal age related neuro degenerative changes, age-appropriate. No acute infarction or significant mass effect appreciated at this time.
[2018-09-22] MEDS: Sodium Chloride 0.9% 1,000 ML IV SCH ×2 (04:00→12:53)
[2018-09-22 05:41] LABS: ALBUMIN 3.6 g/dL (3.5-5.0); ALT/SGPT 160 U/L (21-72); AST/SGOT 57 U/L (17-59); BLOOD UREA NITROGEN 8 mg/dl (9-20); CALCIUM 9.4 mg/dL (8.4-10.2); GFR NON-AFRICAN AMERICAN > 60
[2018-09-22 05:42] LABS: BASO # 0.1 K/uL (0.0-0.2); BASO % 1.1 % (0.0-2.0); EOS # 0.3 K/uL (0.0-0.7); EOS % 3.2 % (0.0-4.0); HEMOGLOBIN 13.7 g/dL (12.0-18.0); LYMPH # 2.4 K/uL (1.0-4.3); LYMPH % 30.4 % (20.0-40.0); MEAN CELL VOLUME 93.5 fl (80.0-94.0); MEAN CORPUSCULAR HEMOGLOBIN 31.3 pg (27.0-31.0); MEAN CORPUSCULAR HGB CONC 33.5 g/dL (33.0-37.0); MEAN PLATELET VOLUME 7.5 fl (7.2-11.7); MONO # 1.1 K/uL (0.0-0.8); MONO % 14.4 % (0.0-10.0); NEUT % 50.9 % (50.0-75.0); RBC 4.37 Mil/uL (4.40-5.90); RED CELL DISTRIBUTION WIDTH 12.9 % (11.5-14.5); WHITE BLOOD COUNT 7.8 K/uL (4.8-10.8)
[2018-09-22 06:58] VITALS: O2SAT 98
[2018-09-22 08:36] VITALS: RESP 20
--- NOTE | 2018-09-22 09:55 | CP.PCM.DIS ---
Addendum entered and electronically signed by Froylan Dior MD 09/22/18 20:29: 53 y/o male with PMH HTN , recent AVM subdural bleed presented with syncopal episode. Patient found to be hypotensive with orthostatic changes . He was placed under observation in telemetry for close monitoring . MRI head showed stable subdural bleed but no acute pathology Telemetry monitoring showed no arrythmias Neurologically patient remained stable with no neuro deficits As per patient he was started recently on Flomax at [facility] for possible urinary retention but he states that he has no urinary symptoms Most likely diagnosis 1.Syncopal episode secondary to orthostatic Hypotension and over medication. Will d/c Flomax and adjusted BP meds 2.Hypertension - adjusted his home meds Decreased Lisinopril from 40 mg to 20 mg daily , decreased labetalol from 300 mg po BID to 100 mg po BID. Discontinue Nifedipine 3.Transaminitis-unclear etiology 4. Recent AVM bleed Original Note: Provider - Provider Date of Admission: 09/20/18 23:54 Attending physician: Kofi Ro Primary care physician: PMD: Dr. Jayjay Myers Consults: none Time Spent in preparation of Discharge (in minutes): 30 Hospital Course - Lab Results Lab Results: Most Recent Lab Values WBC 7.8 K/uL (4.8-10.8) 09/22/18 05:00 RBC 4.37 Mil/uL (4.40-5.90) L 09/22/18 05:00 Hgb 13.7 g/dL (12.0-18.0) 09/22/18 05:00 Hct 40.9 % (35.0-51.0) 09/22/18 05:00 MCV 93.5 fl (80.0-94.0) 09/22/18 05:00 MCH 31.3 pg (27.0-31.0) H 09/22/18 05:00 MCHC 33.5 g/dL (33.0-37.0) 09/22/18 05:00 RDW 12.9 % (11.5-14.5) 09/22/18 05:00 Plt Count 422 K/uL (130-400) H 09/22/18 05:00 MPV 7.5 fl (7.2-11.7) 09/22/18 05:00 Neut % (Auto) 50.9 % (50.0-75.0) 09/22/18 05:00 Lymph % (Auto) 30.4 % (20.0-40.0) 09/22/18 05:00 [place] % (Auto) 14.4 % (0.0-10.0) H 09/22/18 05:00 Eos % (Auto) 3.2 % (0.0-4.0) 09/22/18 05:00 Baso % (Auto) 1.1 % (0.0-2.0) 09/22/18 05:00 Neut # (Auto) 4.0 K/uL (1.8-7.0) 09/22/18 05:00 Lymph # (Auto) 2.4 K/uL (1.0-4.3) 09/22/18 05:00 [place] # (Auto) 1.1 K/uL (0.0-0.8) H 09/22/18 05:00 Eos # (Auto) 0.3 K/uL (0.0-0.7) 09/22/18 05:00 Baso # (Auto) 0.1 K/uL (0.0-0.2) 09/22/18 05:00 PT 12.3 Seconds (9.8-13.1) 09/20/18 19:55 INR 1.1 09/20/18 19:55 APTT 31.3 Seconds (25.6-37.1) 09/20/18 19:55 Sodium 140 mmol/l (132-148) 09/22/18 05:00 Potassium 4.0 MMOL/L (3.6-5.0) 09/22/18 05:00 Chloride 106 mmol/L (98-107) 09/22/18 05:00 Carbon Dioxide 27 mmol/L (22-30) 09/22/18 05:00 Anion Gap 11 (10-20) 09/22/18 05:00 BUN 8 mg/dl (9-20) L 09/22/18 05:00 Creatinine 0.7 mg/dl (0.8-1.5) L 09/22/18 05:00 Est GFR ( Amer) > 60 09/22/18 05:00 Est GFR (Non-Af Amer) > 60 09/22/18 05:00 POC Glucose (mg/dL) 141 mg/dL (65-110) H 09/20/18 19:11 Random Glucose 94 mg/dL (75-110) 09/22/18 05:00 Calcium 9.4 mg/dL (8.4-10.2) 09/22/18 05:00 Total Bilirubin 0.5 mg/dl (0.2-1.3) 09/22/18 05:00 AST 57 U/L (17-59) 09/22/18 05:00 ALT 160 U/L (21-72) H 09/22/18 05:00 Alkaline Phosphatase 155 U/L (38-126) H 09/22/18 05:00 Troponin I < 0.0120 ng/mL (0.00-0.120) 09/20/18 19:55 Total Protein 7.0 G/DL (6.3-8.2) 09/22/18 05:00 Albumin 3.6 g/dL (3.5-5.0) 09/22/18 05:00 Globulin 3.5 gm/dL (2.2-3.9) 09/22/18 05:00 Albumin/Globulin Ratio 1.0 (1.0-2.1) 09/22/18 05:00 - Hospital Course Hospital Course: 53 y/o male with PMHx of HTN, AVM and recent subdural hematoma with recent discharge from [facility] inpt unit, admitted due to syncopal event. Patient was seen and evaluated at bedside. Patient resting comfortably and denies any acute overnight events. Patient states he is feeling much better, and denies any complaints of chest pain, nausea, vomiting, fever, headache, dizziness, or shortness of breath. 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 correction, right frontal butt hole reiterated though less defined as in prior head CT, minimal age related neuro degenrative changes, age appropriate, no acute infarction or significant mass effect appreciated at this time - Patient stable for discharge at this time to follow up with neurologist - Flomax on hold at this time 2) History of hypertension - Lisinopril 20 mg - Labetalol 100 mg - Patient will monitor BP at home 3) Elevated transaminase - ALT 160, AST 57 4) DVT prophylaxis - SCD's at this time - Date & Time of H&P Date of H&P: 09/22/18 Time of H&P: 09:54 Discharge Exam - Head Exam Head Exam: ATRAUMATIC, NORMOCEPHALIC - Eye Exam Eye Exam: Normal appearance - ENT Exam ENT Exam: Mucous Membranes Moist - Neck Exam Neck exam: Full Rom - Respiratory Exam Respiratory Exam: Clear to PA & Lateral, NORMAL BREATHING PATTERN. absent: Rales, Rhonchi, Wheezes - Cardiovascular Exam Cardiovascular Exam: REGULAR RHYTHM, RRR, +S1, +S2 - GI/Abdominal Exam GI & Abdominal Exam: Normal Bowel Sounds. absent: Distended, Firm, Guarding, Rigid - Back Exam Back exam: absent: CVA tenderness (L), CVA tenderness (R) - Neurological Exam Neurological exam: Alert, Oriented x3 - Psychiatric Exam Psychiatric exam: Normal Affect, Normal Mood - Skin Skin Exam: Normal Color Discharge Plan - Discharge Medications Prescriptions: Labetalol [Trandate] 100 mg PO BID #60 tab Lisinopril [Prinivil] 20 mg PO DAILY #30 tablet - Follow Up Plan Condition: FAIR Disposition: HOME/ ROUTINE Instructions: Syncope (DC) Additional Instructions: FOLLOW UP WITH PMD IN [address] [place] Referrals: Jayjay Myers [Family Provider] -
[2018-09-22 12:31] VITALS: BP 148/79; PULSE 75; TEMP 97.8
== END 2018-09-22 14:13 | disposition home or self-care (01) ==
LOC: H.ER 18:53 → H.ERHOLD 23:54 → H.TEL 09-21 03:24
PROVIDERS: ADMIT Internal Medicine; ATTEND Internal Medicine
DX: R55 Syncope and collapse (principal); E78.00 Pure hypercholesterolemia, unspecified; E78.5 Hyperlipidemia, unspecified; F17.210 Nicotine dependence, cigarettes, uncomplicated; I10 Essential (primary) hypertension; J45.909 Unspecified asthma, uncomplicated; M17.0 Bilateral primary osteoarthritis of knee; S06.5X9D Traumatic subdural hemorrhage with loss of consciousness of unspecified duration, subsequent encounter; Z91.81 History of falling; Z86.79 Personal history of other diseases of the circulatory system; Z79.899 Other long term (current) drug therapy; I95.2 Hypotension due to drugs; M54.2 Cervicalgia; R74.0 Nonspecific elevation of levels of transaminase and lactic acid dehydrogenase [LDH]
CPT/HCPCS: 36415; 70450; 70551; 72125; 80053; 82948; 84484; 85025; 85610; 85730; 93005; 96360; 97161; 99285; G0378; J7030